=== PATIENT | male | born 1950 | race Caucasian/White ===

== ENCOUNTER 2016-06-08 12:07 | Emergency (ER) | payer BC ==
[2016-06-08] MEDS ORDERED: ALBUTEROL SO4 2.5/IPRATROPIUM 0.5 INH SOL 3 ML VIAL.NEB. NEB ONE ×2 (12:26→12:46)
[2016-06-08 12:32] VITALS: BP 168/90; PULSE 72; TEMP 98; BMI 24.4
[2016-06-08 13:05] LABS: EOSINOPHIL 12.9 % (0-4.5)
[2016-06-08 13:06] LABS: ALBUMIN 3.8 g/dl (3.5-5.0); ALK PHOS 64 U/L (32-92); ANION GAP 3 (8-16); BILIRUBIN,TOTAL 0.8 mg/dl (0.2-1.0); CALCIUM 9.1 mg/dl (8.4-10.2); CO2 25 mmol/L (22-28); CREATININE 0.9 mg/dl (0.6-1.3); GLUCOSE,RANDOM 97 mg/dl (74-106); MCH 22.7 pg (25.7-33.7); MCHC 31.5 g/dl (32.0-35.9); MEAN CELL VOLUME 72.1 fl (80-96); MEAN PLT VOLUME 8.8 fl (7.5-11.1); NEUTROPHILS 51.6 % (42.8-82.8); PLATELET COUNT 215 K/MM3 (134-434); RDW 14.7 % (11.9-15.9); SGOT/AST 25 U/L (10-42); SGPT/ALT 19 U/L (10-40); TOT PROT 6.1 g/dl (6.4-8.3); WHITE BLOOD COUNT 7.3 K/mm3 (4.0-10.0)
[2016-06-08 13:07] LABS: BASOPHIL 1.7 % (0-2.0)
[2016-06-08 13:08] LABS: CPK(DFH) 121 IU/L (38-174)
[2016-06-08 13:31] LABS: TROPONIN I (DFP) < 0.03 ng/ml (0.03-0.50)
[2016-06-08 13:50] LABS: HYPOCHROMIA 2+; PLATELET ESTIMATE ADEQUATE (NORMAL)
[2016-06-08 13:51] LABS: ANISOCYTOSIS 1+; MICROCYTOSIS 1+; OVALOCYTES 1+; SPHEROCYTE 1+; TEAR DROP CELLS 1+
[2016-06-08] MEDS ORDERED: predniSONE 20 MG TABLET (UD) PO ONE (14:41)
[2016-06-08] MEDS ORDERED: predniSONE 20 MG TABLET (UD) ONE (14:42)
--- NOTE | 2016-06-08 14:47 | PDOC ---
History of Present Illness - General Chief Complaint: Respiratory Stated Complaint: SOB, COUGH Time Seen by Provider: 06/08/16 12:12 History Source: Patient, Spouse Exam Limitations: No Limitations - History of Present Illness Initial Comments: 06/08/16 14:48 Patient is a 65-year-old man with a history of 15 pack years of smoking, however he quit 30 years ago. He was doing fine until about 3 months ago when he developed symptoms of a chronic cough. He has been seeing his primary care provider as well as his special effects person over the last couple of months. He was given a course of azithromycin which did not resolve the cough. He was then given a course of Bactrim for 7 days which also did not resolve the cough. He took prednisone for a short period of time which did help the cough, but the cough is again worse. He has been on various inhalers, currently he is on albuterol, Combivent. Last night he had increased wheezing and shortness of breath so he decided to come to the ED. His symptoms have not been getting better. His cough is occasionally productive of clear to brownish sputum. There is no fever. There is no hemoptysis. There is no leg swelling or pain. There is no weight loss. His special effects person performed a CT scan which showed 2 microscopic nodules 2 mm in size, per the patient's report. The patient did not take his albuterol at all last night. He was on Advair from his primary physician but that was stopped by the special effects person. 06/08/16 14:51 GENERAL/CONSTITUTIONAL: No fever or chills. No weakness. No weight change. HEAD, EYES, EARS, NOSE AND THROAT: No change in vision. No ear pain or discharge. No sore throat. CARDIOVASCULAR: No chest pain. + Positive shortness of breath with wheezing last night. RESPIRATORY: + Positive cough. Positive wheezing. Positive occasional brown sputum. GASTROINTESTINAL: No nausea, vomiting, diarrhea or constipation. No rectal bleeding. GENITOURINARY: No dysuria, frequency, or change in urination. MUSCULOSKELETAL: No joint or muscle swelling or pain. No neck or back pain. SKIN AND BREASTS: No rash or easy bruising. NEUROLOGIC: No headache, vertigo, loss of consciousness, or loss of sensation. PSYCHIATRIC: No depression or anxiety. ENDOCRINE: No increased thirst. No abnormal weight change. HEMATOLOGIC/LYMPHATIC: No anemia, easy bleeding, or history of blood clots. ALLERGIC/IMMUNOLOGIC: No hives or skin allergy. No latex allergy. Past History - Past Medical History Allergies/Adverse Reactions: Allergies Allergy/AdvReac Type Severity Reaction Status Date / Time No Known Allergies Allergy Verified 06/08/16 12:10 Home Medications: Ambulatory Orders Fluticasone Propionate [Flovent Diskus] 250 mcg IH BID #1 inhaler 06/08/16 Prednisone [Deltasone -] 40 mg PO DAILY #14 tablet 06/08/16 Other medical history: DENIES - Psycho/Social/Smoking Cessation Hx Anxiety: No Suicidal Ideation: No Smoking History: Former smoker Have you smoked in the past 12 months: No If you are a former smoker, when did you quit?: 30YRS Information on smoking cessation initiated: No Hx Alcohol Use: Yes Drug/Substance Use Hx: No Substance Use Type: Alcohol *Physical Exam - Vital Signs Last Vital Signs Temp Pulse Resp BP Pulse Ox 98.0 F 72 18 168/90 95 06/08/16 12:10 06/08/16 12:10 06/08/16 12:10 06/08/16 12:10 06/08/16 12:10 - Physical Exam Comments: 06/08/16 14:51 GENERAL: The patient is awake, alert, and fully oriented, in no acute distress. He has occasional coughing. HEAD: Normal with no signs of trauma. EYES: Pupils equal, round and reactive to light, extraocular movements intact, sclera anicteric, conjunctiva clear. ENT: Ears normal, nares patent, oropharynx clear without exudates. Moist mucous membranes. NECK: Normal range of motion, supple without lymphadenopathy, JVD, or masses. LUNGS: There are diffuse expiratory wheezes, increased on coughing, good air entry. No splinting or pain on deep inspiration. HEART: Regular rate and rhythm, normal S1 and S2 without murmur, rub or gallop. ABDOMEN: Soft, nontender, normoactive bowel sounds. No guarding, no rebound. No masses. EXTREMITIES: Normal range of motion, no edema. No clubbing or cyanosis. No cords, erythema, or tenderness. Calves and thighs without swelling, tenderness , or redness. NEUROLOGICAL: Cranial nerves II through XII grossly intact. Normal speech, normal gait. PSYCH: Normal mood, normal affect. SKIN: Warm, Dry, normal turgor, no rashes or lesions noted. Heart Score/ECG Review - ECG Intrepretation Comment:: 06/08/16 14:52 Twelve-lead EKG shows normal sinus rhythm at a rate of 65 bpm. The axis is leftward with left axis deviation. There are no acute ST elevations or depressions. There are no abnormal T waves. Impression: Normal sinus rhythm with left axis deviation. No acute ischemic changes. ED Treatment Course - LABORATORY CBC & Chemistry Diagram: 06/08/16 12:25 06/08/16 12:25 - ADDITIONAL ORDERS Additional order review: Laboratory Results 06/08/16 06/08/16 06/08/16 12:32 12:32 12:25 D-Dimer < 200 Sodium 137 Potassium 4.1 Chloride 109 H Carbon Dioxide 25 Anion Gap 3 L BUN 16 Creatinine 0.9 Creat Clearance w eGFR > 60 Random Glucose 97 Calcium 9.1 Total Bilirubin 0.8 AST 25 ALT 19 Alkaline Phosphatase 64 Creatine Kinase 121 Troponin I < 0.03 L Total Protein 6.1 L Albumin 3.8 06/08/16 12:25 RBC 5.87 H MCV 72.1 L MCHC 31.5 L RDW 14.7 MPV 8.8 Neutrophils % 51.6 Lymphocytes % 24.2 Monocytes % 9.6 Eosinophils % 12.9 H Basophils % 1.7 - RADIOLOGY Radiology Studies Ordered: Category Date Time Status CHEST PA & LAT [RAD] Stat Radiology 06/08/16 12:25 Completed - Medications Given in the ED: ED Medications Discontinued Medications Generic Name Dose Route Start Last Admin Trade Name Freq PRN Reason Stop Dose Admin Albuterol/Ipratropium 1 amp 06/08/16 12:26 06/08/16 12:49 Duoneb - NEB 06/08/16 12:27 1 amp ONCE ONE Administration Medical Decision Making - Medical Decision Making 06/08/16 14:53 Patient is a 65-year-old man with a remote smoking history, about 15 pack years , quit 30 years ago. He has been having symptoms of chronic cough and chronic bronchitis over the last 3 months. He was seen by both his primary physician and his special effects person. He has been treated with 2 courses of antibiotics, a brief course of steroids, and other inhalers. Last night he had increased wheezing and shortness of breath and he came to the ED for further evaluation today. On examination today, the patient has expiratory wheezes diffusely. He is in no acute distress otherwise. Workup with chest x-ray shows no acute infiltrates and no CHF. EKG shows no ischemic changes. Laboratory workup shows d-dimer negative, troponin negative, normal white blood cell count, however there is significant eosinophilia to 12.9 %. Impression: Increased eosinophils are suggestive of ALLERGIC asthma. Patient got a nebulizer treatment and prednisone in the ED and his symptoms and his wheezing resolved. His lungs were clear prior to discharge. Plan: Patient will be discharged on 7 days of prednisone 40 mg, albuterol inhaler when necessary, Flovent twice daily as a preventative, and Singulair. He will follow up with his special effects person for further treatment. There is an appointment scheduled for of this week. *DC/Admit/Observation/Transfer Diagnosis at time of Disposition: Asthma exacerbation - Discharge Dispostion Disposition: HOME Condition at time of disposition: Improved Admit: No - Prescriptions Prescriptions: Prednisone [Deltasone -] 40 mg PO DAILY #14 tablet Fluticasone Propionate [Flovent Diskus] 250 mcg IH BID #1 inhaler - Referrals Referrals: Girma Abrams [Primary Care Provider] - 3 days - Patient Instructions Printed Discharge Instructions: DI for Asthma -- Adult Additional Instructions: Today you were evaluated for shortness of breath. The chest x-ray is normal. The EKG shows no signs of a heart problem. The blood tests showed high eosinophils, an indication of an ALLERGIC problem which likely indicates asthma. You had bronchitis for a few months and now it has transitioned into an asthma-like condition. Follow-up this week with your special effects person. Bring a copy of your discharge results occluding your laboratory results to your next appointments. Your chest x-ray today was clear. The EKG shows no signs of any acute heart problems. Take medication as follows: Prednisone 40 mg every morning for 7 days Flovent steroid inhaler twice daily Albuterol inhaler (red) 2 puffs every 4 hours as a rescue inhaler for shortness of breath or wheezing. Return to the emergency department for any severe or progressive symptoms. Otherwise follow-up with your primary care provider and her special effects person as scheduled on . You can expect the cough to get better over the next couple of days on the new medication.
--- NOTE | 2016-06-09 18:00 | EKG ---
Test Reason : Blood Pressure : / mmHG Vent. Rate : 065 BPM Atrial Rate : 065 BPM P-R Int : 142 ms QRS Dur : 090 ms QT Int : 420 ms P-R-T Axes : 050 -41 038 degrees QTc Int : 436 ms NORMAL SINUS RHYTHM LEFT AXIS DEVIATION NO PREVIOUS ECGS AVAILABLE Confirmed by MD ANGIE, HANNAH ([id number]) on 06/09/2016 6:00:22 PM Referred By: EDDIE GAN Confirmed By:HANNAH ADAMS MD
== END 2016-06-08 14:50 | disposition home or self-care (01) ==
LOC: FER 12:07
PROC: 3E0F7GC Introduction of Other Therapeutic Substance into Respiratory Tract, Via Natural or Artificial Opening (ICD-10-PCS; principal; 2016-06-08)
DX: J45.901 Unspecified asthma with (acute) exacerbation (principal); Z87.891 Personal history of nicotine dependence
CPT/HCPCS: 36415; 71020-TC; 80053; 82550; 84484; 85025; 85379; 93005; 99283-25

== ENCOUNTER 2020-01-24 09:47 | Emergency (ER) | payer OTHER, BC | END 2020-01-24 10:15 | disposition home or self-care (01) | LOC: JVIRT 09:47 | DX: Z03.818 Encounter for observation for suspected exposure to other biological agents ruled out (principal) | CPT/HCPCS: C9803; Q3014-GT; U0003 ==

== ENCOUNTER 2021-04-06 23:27 | Emergency (ER) | payer OTHER, BC ==
[2021-04-06 23:38] VITALS: BP 170/80; PULSE 85; TEMP 98.5; BMI 26.0
[2021-04-06] MEDS ORDERED: ALBUTEROL SO4 2.5/IPRATROPIUM 0.5 INH SOL 3 ML VIAL.NEB. NEB ONE ×2 (23:47→23:57)
[2021-04-06] MEDS ORDERED: predniSONE 20 MG TABLET (UD) ONE (23:48)
[2021-04-06] MEDS ORDERED: predniSONE 20 MG TABLET (UD) PO ONE (23:49)
[2021-04-07 00:55] LABS: HEMATOCRIT 40.4 % (35.4-49); HEMOGLOBIN 12.6 GM/dL (11.7-16.9); LYMPH % 24.5 % (8-40); MCHC 31.2 g/dl (32.0-35.9); MEAN CELL VOLUME 70.4 fl (80-96); MEAN PLT VOLUME 8.4 fl (7.5-11.1); NEUT % 56.5 % (42.8-82.8); PLATELET COUNT 184 10^3/uL (134-434); RBC 5.74 M/mm3 (4.00-5.60); RDW 15.4 % (11.9-15.9); WHITE BLOOD COUNT 5.5 K/mm3 (4.0-10.0)
[2021-04-07 01:13] LABS: CHLORIDE 110 mmol/L (98-107); SODIUM 142 mmol/L (136-145)
[2021-04-07 01:15] LABS: ALBUMIN 3.5 g/dl (3.4-5.0); ANION GAP 6 MMOL/L (8-16); BLOOD UREA NITROGEN 15.1 mg/dL (7-18); CALCIUM 8.8 mg/dL (8.5-10.1); CO2 27 mmol/L (21-32); GLUCOSE,RANDOM 120 mg/dL (74-106)
[2021-04-07 01:18] LABS: CREATININE 0.6 mg/dL (0.55-1.3); SGOT/AST 14 U/L (15-37)
[2021-04-07 01:19] LABS: SGPT/ALT 24 U/L (13-61)
[2021-04-07 01:20] LABS: BILIRUBIN,TOTAL 0.2 mg/dL (0.2-1); TOT PROT 6.7 g/dl (6.4-8.2)
[2021-04-07 01:21] LABS: ALK PHOS 99 U/L (45-117)
== END 2021-04-07 04:39 | disposition home or self-care (01) ==
LOC: FER 23:27
PROC: 3E0F7GC Introduction of Other Therapeutic Substance into Respiratory Tract, Via Natural or Artificial Opening (ICD-10-PCS; principal; 2021-04-06)
DX: J45.901 Unspecified asthma with (acute) exacerbation (principal)
CPT/HCPCS: 36415; 80053; 82550; 84484; 85025; 93005; 94640; 99284-25